=== PATIENT | female | born 1950 | race Caucasian/White ===

== ENCOUNTER → 2019-01-06 | Outpatient (CLI) | payer MEDICARE, BC ==
--- NOTE | 2019-01-06 11:51 | Diagnostic Imaging Report ---
TECHNIQUE: Magnetic resonance imaging of the LEFT KNEE was performed WITHOUT injected contrast. HISTORY: MEDIAL MENISCUS DERRANGEMENT LEFT, posterior left knee, pain, history of "scope" April 2014 COMPARISON: None available. FINDINGS: LIGAMENTS AND TENDONS: ACL: Intact PCL: Intact Collateral ligaments: Intact Iliotibial band: Unremarkable Popliteal tendon: Intact Extensor mechanism: Intact JOINT: Menisci: Medial: Contour irregularity and attenuation of the posterior horn and body, most notably the tibial articular surface. Meniscal tissue extruded into the inferomedial joint recess, measuring approximately 1.8 cm (AP) x 0.3 cm (ML) x 0.3 cm (CC). Lateral: Intact Articular Cartilage: Medial Compartment: High-grade to full-thickness erosions of the weightbearing cartilage. Lateral Compartment: Low-grade erosion of the weightbearing cartilage. Patellofemoral Compartment: Diffuse high-grade erosion of the patellar cartilage. Joint Fluid: The amount of fluid within the joint is within physiologic limits. BONES: No focal or infiltrative bone marrow replacing abnormality. No acute fracture. Minimal reactive subchondral bone marrow edema of the medial tibial plateau. SOFT TISSUES: Otherwise, unremarkable. IMPRESSION: 1. 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 2. Postsurgical versus degenerative tearing of the medial meniscus. Signed by: Dr. Trey Diop D.O., M.M.M. on 01/06/2019 11:48 AM
== END ==
LOC: MRI 08:44
PROVIDERS: ATTEND Specialist
DX: M23.332 Other meniscus derangements, other medial meniscus, left knee (principal)

== ENCOUNTER 2021-10-06 10:27 | Emergency (ER) | payer MEDICARE, BC ==
[~2021-10-06] VITALS: Ht 157.5 cm; Wt 87.1 kg
== END 2021-10-06 11:55 | disposition home or self-care (01) ==
LOC: FSED 10:34
DX: M79.671 Pain in right foot (principal); I10 Essential (primary) hypertension; E78.5 Hyperlipidemia, unspecified
CPT/HCPCS: 99283

== ENCOUNTER 2021-12-15 10:20 | Emergency (ER) | payer MEDICARE, BC ==
[~2021-12-15] VITALS: Ht 157.5 cm; Wt 87.1 kg
[2021-12-15] MEDS ORDERED: PREDNISONE20 MG PO (12:11)
[2021-12-15] MEDS ORDERED: ULTRAM 50MG50 MG PO (12:12)
[2021-12-15] MEDS ORDERED: PREDNISONE 20 MG TAB PO ONE (12:15)
[2021-12-15] MEDS ORDERED: PREDNISONE 20 MG TAB ONE (12:20)
== END 2021-12-15 12:33 | disposition home or self-care (01) ==
LOC: FSED 11:57
DX: M79.605 Pain in left leg (principal); M70.62 Trochanteric bursitis, left hip; I10 Essential (primary) hypertension; E78.5 Hyperlipidemia, unspecified
CPT/HCPCS: 99283; J7512

== ENCOUNTER 2022-03-23 01:52 | Emergency (ER) | payer MEDICARE, BC, OTHER ==
[~2022-03-23] VITALS: Ht 157.5 cm; Wt 83.9 kg
[~2022-03-23 01:52] MED LIST: PREDNISONE20 MG PO; ULTRAM 50MG50 MG PO
[2022-03-23] MEDS ORDERED: KETOROLAC TROMETHAMINE 60 MG/2 ML VIAL IM ONE (03:30)
[2022-03-23] MEDS ORDERED: KETOROLAC TROMETHAMINE 60 MG/2 ML VIAL ONE (03:45)
== END 2022-03-23 04:00 | disposition home or self-care (01) ==
LOC: FSED 02:15
DX: M54.50 Low back pain, unspecified (principal); M79.605 Pain in left leg; S93.492A Sprain of other ligament of left ankle, initial encounter; W01.0XXA Fall on same level from slipping, tripping and stumbling without subsequent striking against object, initial encounter; Y93.01 Activity, walking, marching and hiking; Y92.89 Other specified places as the place of occurrence of the external cause; I10 Essential (primary) hypertension; E78.5 Hyperlipidemia, unspecified
CPT/HCPCS: 72100; 73560; 73610; 73630; 99283; J1885

== ENCOUNTER 2024-09-12 09:47 | Emergency (ER) | payer MEDICARE, BC ==
[~2024-09-12] VITALS: Ht 157.5 cm; Wt 86.0 kg
[~2024-09-12 09:47] MED LIST changes: +BACTRIM 400-801 EACH PO; +FLOMAX0.4 MG PO; +ONDANSETRON ODT4 MG PO
[2024-09-12] MEDS ORDERED: LOSARTAN POTAS100 MG PO (10:19)
[2024-09-12 11:42] VITALS: PULSE 64; RESP 16; TEMP 98.1; O2SAT 95
== END 2024-09-12 12:19 | disposition home or self-care (01) ==
LOC: FSED 09:54
DX: S20.211A Contusion of right front wall of thorax, initial encounter (principal); S29.011A Strain of muscle and tendon of front wall of thorax, initial encounter; W01.0XXA Fall on same level from slipping, tripping and stumbling without subsequent striking against object, initial encounter; Y93.01 Activity, walking, marching and hiking; Y92.89 Other specified places as the place of occurrence of the external cause; I10 Essential (primary) hypertension; E78.5 Hyperlipidemia, unspecified; Z87.442 Personal history of urinary calculi
CPT/HCPCS: 71101; 99283